=== PATIENT | female | born 1975 | race Caucasian/White ===

== ENCOUNTER 2024-03-11 12:25 | Day surgery (SDC) | payer BC ==
[2024-03-06 09:42] VITALS: BMI 29.0
== END 2024-03-11 15:53 | disposition home or self-care (01) ==
LOC: CSHSDC 12:25
PROVIDERS: ATTEND Surgery
PROC: 0DB58ZX Excision of Esophagus, Via Natural or Artificial Opening Endoscopic, Diagnostic (ICD-10-PCS; principal; 2024-03-11)
PROC: 0D758ZZ Dilation of Esophagus, Via Natural or Artificial Opening Endoscopic (ICD-10-PCS; principal; 2024-03-11)
DX: R13.10 Dysphagia, unspecified (principal); K22.2 Esophageal obstruction; K31.89 Other diseases of stomach and duodenum; K29.50 Unspecified chronic gastritis without bleeding; E11.9 Type 2 diabetes mellitus without complications; R22.0 Localized swelling, mass and lump, head; Z98.51 Tubal ligation status; Z90.89 Acquired absence of other organs; Z90.49 Acquired absence of other specified parts of digestive tract; Z98.84 Bariatric surgery status; Z90.710 Acquired absence of both cervix and uterus
CPT/HCPCS: 88305